=== PATIENT | female | born 1960 | race Caucasian/White ===

== ENCOUNTER 2017-04-07 19:41 | Emergency (ER) | payer OTHER ==
--- NOTE | 2017-04-07 20:22 | ER Document Report ---
ED Animal Bite - General Mode of Arrival: Ambulatory Information source: Patient TRAVEL OUTSIDE OF THE [place] IN LAST 30 DAYS: No - HPI Location of injury: [place] Severity of injury: Scratched, Bitten Onset: Other - Refer to HPI notes Quality of pain: Sharp Severity: Mild Context of attack: Approached animal Type of animal: Cat - General Chief Complaint: Cat Bite Stated Complaint: POSSIBLE CAT BITE Time Seen by Provider: 04/07/17 20:30 - HPI Notes: Patient is a 57-year-old female presented emergency department for Bite to her right lower extremity. Patient was bit by her nephew's cat. Patient states that the cat does not know her very well so it bit and scratched her around her right knee. Patient states that she put alcohol on the areas just after it happened. Patient states she is having some sharp pain associated with the bitten areas. Patient states her last tetanus was more than 5 years ago. Patient is visiting her sister from [place] and states that she flies home tomorrow morning. Patient is allergic to sulfa drugs. Patient has a history of osteoarthritis. (IRINEO WOODS) - Related Data Allergies/Adverse Reactions: Sulfa (Sulfonamide Antibiotics) Allergy (Intermediate, Verified 04/07/17 19:51) Past Medical History - General Information source: Patient - Social History Smoking Status: Never Smoker Cigarette use (# per day): No Chew tobacco use (# tins/day): No Smoking Education Provided: No Frequency of alcohol use: Social - Wine Family History: None Patient has suicidal ideation: No Patient has homicidal ideation: No Musculoskeltal Medical History: Reports Hx Arthritis - Osteoarthritis Past Surgical History: Reports: Hx Tonsillectomy - 1960, Hx Umbilical Hernia Review of Systems - Review of Systems Constitutional: No symptoms reported EENT: No symptoms reported Cardiovascular: No symptoms reported Respiratory: No symptoms reported Gastrointestinal: No symptoms reported Genitourinary: No symptoms reported Female Genitourinary: No symptoms reported Musculoskeletal: No symptoms reported Skin: See HPI, Other - Cat bite Hematologic/Lymphatic: No symptoms reported Neurological/Psychological: No symptoms reported -: Yes All other systems reviewed and negative Physical Exam - Vital signs Interpretation: Normal - Vital signs Vitals: Temp Pulse Resp BP Pulse Ox 98.2 F 79 17 112/62 98 04/07/17 19:51 04/07/17 19:51 04/07/17 19:51 04/07/17 19:51 04/07/17 19:51 - Notes Notes: GENERAL: Alert, interacts well. No acute distress. HEAD: Normocephalic, atraumatic. EYES: Appear normal. Pupils equal, round, and reactive to light. ENT: Moist mucus membranes, tongue midline. NECK: Full range of motion. Supple. Trachea midline. LUNGS: No respiratory distress. HEART: Regular rate. ABDOMEN: Soft, non-tender. Non-distended. Normal bowel sounds. EXTREMITIES: Moves all 4 extremities spontaneously. Normal strength. No edema. Multiple puncture wounds and scratches around the right knee. No tenderness to palpation of deep structures around the knee or tendons of the knee. NEUROLOGICAL: Alert and oriented x3. Normal speech. No focal neurological deficits. GSC 15. PSYCH: Normal affect, normal mood. SKIN: Warm, dry, normal turgor. *See extremity section. (IRINEO WOODS) - Vital Signs Vital signs: Temp Pulse Resp BP Pulse Ox 98.2 F 79 17 112/62 98 04/07/17 19:51 04/07/17 19:51 04/07/17 19:51 04/07/17 19:51 04/07/17 19:51 Discharge - Discharge Clinical Impression: Cat bite of right lower leg Qualifiers: Encounter type: initial encounter Qualified Code(s): S81.851A - Open bite, right lower leg, initial encounter Condition: Stable Disposition: HOME, SELF-CARE Additional Instructions: Animal Bites: Animal bites are often heavily contaminated with bacteria. In spite of thorough cleansing and proper treatment, these wounds frequently become infected. Bite wounds of the hands are especially prone to complications. Bites are dressed, if possible. Large wounds may require suturing after internal cleansing. Because of infection risk, some large wounds must remain unstitched. Your doctor is trained to advise you on the best treatment for your bite. Call the doctor at once if the wound becomes red, swollen, warm, increasingly painful, or if it begins to drain. Danger signs also include red streaks up the involved extremity, swollen glands in the groin or under the arm , or fever and chills. The risk of rabies from domestic animals is very low. Bats, sick animals, and wild animals may expose you to rabies. The physician, or the health department, will inform you if you will need to receive the rabies vaccine. TAKE THE MEDICATION PRESCRIBED. ELEVATE THE LEG. APPLY MOIST HEAT OR SOAK IN WARM WATER. FOLLOW UP WITH YOUR DOCTOR IF ANY PROBLEMS. RETURN TO THE EMERGENCY ROOM IF ANY NEW OR WORSENING SYMPTOMS. Prescriptions: Amox Tr/Potassium Clavulanate [Augmentin 875-125 mg Tablet] 1 tab PO BID #14 tablet Raphaelibe Attestation: 04/07/17 20:35 I personally performed the services described in the documentation, reviewed and edited the documentation which was dictated to the scribe in my presence, and it accurately records my words and actions. (EDY ROQUE) Raphaelibe Documentation - Scribe Written by Micheal:: Micheal Stubbs, 04/07/2017 20:55 acting as scribe for :: Windy
[2017-04-07] MEDS ORDERED: AMOXICILLIN TR/POT CLAVULANATE 500-125 MG TAB PO ONE (20:31)
[2017-04-07] MEDS ORDERED: AMOXICILLIN TRIHYDRATE 500 MG CAPSULE PO ONE (20:31)
[2017-04-07] MEDS ORDERED: DIPH/PERTUSS(ACELL)/TETANUS VAC/PF 0.5 ML SYR (>=10YO) IM ONE (20:31)
[2017-04-07 21:41] VITALS: BP 118/64
== END 2017-04-07 21:42 | disposition home or self-care (01) ==
LOC: ER 19:41
DX: S81.851A Open bite, right lower leg, initial encounter (principal); W55.01XA Bitten by cat, initial encounter
CPT/HCPCS: 90471; 90715; 99283